=== PATIENT | female | born 1970 | race Caucasian/White ===

== ENCOUNTER 2016-10-16 15:56 | Emergency (ER) | payer OTHER ==
[~2016-10-16] VITALS: Ht 162.6 cm; Wt 90.5 kg
[~2016-10-16 15:56] MED LIST: HYDR25TA PO
[2016-10-16 18:17] VITALS: BP 134/84
[2016-10-16] MEDS ORDERED: IBUPROFEN 800 MG TABLET PO ONE (19:45)
== END 2016-10-16 18:57 | disposition home or self-care (01) ==
LOC: EMS 15:58
DX: S23.3XXA Sprain of ligaments of thoracic spine, initial encounter (principal); M62.830 Muscle spasm of back; R05 Cough; I10 Essential (primary) hypertension; K21.9 Gastro-esophageal reflux disease without esophagitis; X58.XXXA Exposure to other specified factors, initial encounter; Y93.89 Activity, other specified; Y92.89 Other specified places as the place of occurrence of the external cause; Y99.8 Other external cause status
CPT/HCPCS: 99283

== ENCOUNTER 2018-03-14 09:50 | Emergency (ER) | payer SELFPAY ==
[~2018-03-14] VITALS: Ht 162.6 cm; Wt 92.0 kg
[2018-03-14] MEDS ORDERED: FURO20 PO (10:06)
[2018-03-14] MEDS ORDERED: FERR-89 PO (10:06)
[2018-03-14] MEDS ORDERED: OMEP10 PO (10:06)
[2018-03-14] MEDS ORDERED: POTA25TA7 PO (10:06)
[2018-03-14 11:29] LABS: EOSINOPHILS % (AUTO) 2.9 % (1.0-6.0); HEMOGLOBIN 10.4 g/dL (12.0-16.0); LYMPHOCYTES # (AUTO) 1.5 K/uL (1.0-4.8); LYMPHOCYTES % (AUTO) 21.9 % (22.0-44.0); MEAN CORPUSCULAR HEMOGLOBIN 17.9 pg (26.0-34.0); MEAN CORPUSCULAR HGB CONC 30.6 G/dL (31.0-37.0); MEAN CORPUSCULAR VOLUME 59 fL (80-100); MONOCYTES # (AUTO) 0.5 K/uL (0.1-1.0); MONOCYTES % (AUTO) 6.6 % (2.0-9.0); NEUTROPHILS # (AUTO) 4.7 K/uL (1.8-7.7); NEUTROPHILS % (AUTO) 67.6 % (40.0-70.0); PLATELET COUNT (AUTO) 407 K/uL (150-450); RED CELL DISTRIBUTION WIDTH 21.5 % (11.5-14.5)
[2018-03-14 11:38] LABS: ANION GAP 8 mmol/L (8-16); CALCIUM, TOTAL 8.5 mg/dL (8.8-10.5); CARBON DIOXIDE 28 mmol/L (22-29); CHLORIDE 103 mmol/L (98-107); CREATININE 0.78 mg/dL (0.60-1.30); GLOMERULAR FILTR. RATE CALC > 60 mL/min (>60); GLUCOSE,RANDOM 91 mg/dL (70-110); SODIUM SERUM 139 mmol/L (136-145); UREA NITROGEN, BLOOD 9 mg/dL (7-18)
[2018-03-14 11:41] VITALS: BP 124/67
[2018-03-14 11:43] LABS: ALANINE AMINOTRANSFERASE 45 U/L (12-78); ALBUMIN 3.3 g/dL (3.4-5.0); ALKALINE PHOSPHATASE 107 U/L (46-116); ASPARTATE AMINOTRANSFERASE 26 U/L (15-37); BILIRUBIN,TOTAL 0.2 mg/dL (0.1-1.0); TOTAL PROTEIN, SERUM 7.8 g/dL (6.4-8.2)
== END 2018-03-14 12:29 | disposition home or self-care (01) ==
LOC: EMS 09:51
DX: J40 Bronchitis, not specified as acute or chronic (principal); D64.9 Anemia, unspecified; I10 Essential (primary) hypertension; K21.9 Gastro-esophageal reflux disease without esophagitis
CPT/HCPCS: 93005; 99285

== ENCOUNTER 2020-12-14 22:48 | Emergency (ER) | payer OTHER ==
[~2020-12-14] VITALS: Ht 162.6 cm; Wt 111.8 kg
[~2020-12-14 22:48] MED LIST changes: +FERR-89 PO; +FURO20 PO; -HYDR25TA PO; +OMEP10 PO; +POTA25TA7 PO
[2020-12-14] MEDS ORDERED: IBUPROFEN 800 MG TABLET PO ONE (23:15)
[2020-12-15 01:05] VITALS: BP 134/79
== END 2020-12-15 01:12 | disposition home or self-care (01) ==
LOC: EMS 22:53
DX: S93.401A Sprain of unspecified ligament of right ankle, initial encounter (principal); M21.921 Unspecified acquired deformity of right upper arm; K21.9 Gastro-esophageal reflux disease without esophagitis; I10 Essential (primary) hypertension; Z79.899 Other long term (current) drug therapy; W01.0XXA Fall on same level from slipping, tripping and stumbling without subsequent striking against object, initial encounter; Y93.89 Activity, other specified; Y92.89 Other specified places as the place of occurrence of the external cause; Y99.8 Other external cause status
CPT/HCPCS: 29515; 99284; 73030-TC; 73610-TC; 73630-TC; Z7502; Z7610